=== PATIENT | male | born 2000 | race Caucasian/White ===

== ENCOUNTER 2021-12-26 03:45 | Emergency (ER) | payer SELFPAY ==
[~2021-12-26] VITALS: Ht 167.6 cm; Wt 63.5 kg
[2021-12-26 03:49] VITALS: BP 144/98
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
[2021-12-26] MEDS ORDERED: ACETAMINOPHEN EXTRA STRENGTH 500 MG TAB PO ONE (04:25)
[2021-12-26] MEDS ORDERED: IBUPROFEN 600 MG TAB PO ONE (04:25)
--- NOTE | 2021-12-26 05:48 | NUR ---
PT IS SITTING AT BEDSIDE USING WET WASHCLOTHS TO SOOTH PAIN. PAIN HAS SUBSIDED; SWELLING AND REDNESS HAS SUBSIDED.
[2021-12-26 06:00] VITALS: BP 134/90
--- NOTE | 2021-12-26 06:00 | NUR ---
Patient discharged with v/s stable. Written and verbal after care instructions given and explained. Patient verbalized understanding. Ambulatory with steady gait. All questions addressed prior to discharge. Advised to follow up with PMD.
== END 2021-12-26 06:00 | disposition home or self-care (01) ==
LOC: MED 03:45
DX: S01.01XA Laceration without foreign body of scalp, initial encounter (principal); T59.91XA Toxic effect of unspecified gases, fumes and vapors, accidental (unintentional), initial encounter; Y08.89XA Assault by other specified means, initial encounter; Y93.89 Activity, other specified; Y92.89 Other specified places as the place of occurrence of the external cause; Y99.8 Other external cause status
CPT/HCPCS: 99283